=== PATIENT | male | born 1980 | race Two or more races ===

== ENCOUNTER 2023-06-07 09:50 | Emergency (ER) | payer OTHER ==
[~2023-06-07] VITALS: Ht 167.6 cm; Wt 63.5 kg
== END 2023-06-07 11:10 | disposition home or self-care (01) ==
LOC: ER 09:52
DX: S81.802A Unspecified open wound, left lower leg, initial encounter (principal); X58.XXXA Exposure to other specified factors, initial encounter; Y93.89 Activity, other specified; Y92.89 Other specified places as the place of occurrence of the external cause; Y99.8 Other external cause status